=== PATIENT | female | born 1940 | race Caucasian/White ===

== ENCOUNTER 2016-09-19 20:46 | Emergency (ER) | payer MEDICARE, BC ==
[2016-09-19 20:53] VITALS: BP 191/104
--- NOTE | 2016-09-19 21:18 | ERNOTE ---
Medical Problem HPI - Narrative Date of Service: 09/19/16 - General Chief Complaint: Nausea/Vomiting Time Seen by Provider: 09/19/16 21:04 Source: patient, family Exam Limitations: no limitations - Immun/Allergies/Home Medications Immunizations: IMMUNIZATION HX Immunizations Up to Date Yes History of Influenza Vaccine Yes Hx Pneumococcal Vaccination Yes Allergies/Adverse Reactions: Allergies No Known Allergies Allergy (Verified 09/19/16 20:53) Home Medications: HOME MEDICATIONS Acetaminophen [Tylenol] 500 mg PO PRN PRN 03/07/14 [Last Taken Unknown] Aspirin [Aspirin Chewable] 81 mg PO DAILY 03/07/14 [Last Taken Unknown] Atenolol 50 mg PO BID 03/07/14 [Last Taken Unknown] Baclofen 20 mg PO TID 03/07/14 [Last Taken Unknown] Clobetasol Propionate [Temovate 0.05% Cream] 1 appl TP PRN PRN 03/07/14 [Last Taken Unknown] Furosemide [Lasix] 40 mg PO DAILY 03/07/14 [Last Taken Unknown] Gabapentin 100 mg PO TID 03/07/14 [Last Taken Unknown] Losartan Potassium 100 mg PO DAILY 03/07/14 [Last Taken Unknown] Simvastatin 40 mg PO DAILY 03/07/14 [Last Taken Unknown] - History of Present History Narrative: has been sick all day with n/v/diarrhea. Denies fever/chills or abdominal pain. No sick contacts. No obvious food poisoning. Date (Duration): 09/19/16 Timing: constant Severity: moderate Modifying Factors - (Improves): Present: other - took 2 doses of pepto-bismol about noon today. now stools dark Review of Systems - Review of Systems Constitutional: Present: fatigue, malaise. Absent: fever, chills, diaphoresis EYE: Present: no symptoms reported ENT: Present: nose congestion, other - mild cold symptoms for a few days Respiratory: Present: no symptoms reported Cardiology: Present: no symptoms reported Gastrointestinal/Abdominal: Present: nausea, vomiting, diarrhea, eating less, drinking less Genitourinary: Present: no symptoms reported Musculoskeletal: Present: no symptoms reported Skin: Present: no symptoms reported Psych: Present: no symptoms reported - Patient's Past Medical History Patient History - Medical: No pertinent hx Patient History - Cancer: No Hx of Cancer Patient History - Surgical Procedures: Cholecystectomy, Other - large colon polyp removed - Social History Smoking Status: Former smoker Have you smoked in the past 12 months: No Do you dip or chew tobacco: No Alcohol Use: none Drug Use: none Physical Exam - Physical Exam General Appearance: Present: wd/wn, alert, no apparent distress Eye Exam: Normal inspection: bilateral, PERRL: bilateral Neck: Present: normal inspection Respiratory: Present: no respiratory distress Cardiovascular/Chest: Present: regular rate, rhythm, no murmur Gastrointestinal/Abdominal: Present: normal bowel sounds, nontender, nondistended, soft, no organomegaly Back Exam: Present: normal inspection Extremity Exam: Present: normal inspection Neurological Exam: Present: alert, oriented, normal mood/affect Skin Exam: Present: normal color, warm/dry. Absent: pallor, skin rash ED Progress - Results and Orders Patient's Lab Results:: I have reviewed the patient's lab results. - Vital Signs Patient's Vital Signs:: I have reviewed the patient's vital signs. Vital Signs: Vital Signs 09/19/16 20:49 Temperature 37.3 C Pulse Rate 93 Respiratory 14 Rate Blood Pressure 191/104 O2 Sat by Pulse 95 Oximetry - X-Ray X-Ray #1 X-Ray: abdomen Interpretation: Reviewed by me X-ray Comments: no obstruction - Progress/Reassessment Chief Complaint: Nausea/Vomiting Plan - Plan Plan: IV fluids, Zofran, rest. Plan home. Departure - Departure Clinical Impression: Viral gastroenteritis Disposition: Home self-care Condition: Good Instructions: Viral Gastroenteritis, Adult, [id number] Additional Instructions: Home, rest, small volume fluids only for the first 6-12 hours then increase diet as tolerated. Referrals: Helen Sales MD [Primary Care Provider] -
[2016-09-19] MEDS ORDERED: ONDANSETRON HCL/PF 2 MG/ML VIAL ONE ×2 (21:21→22:54)
[2016-09-19 21:32] LABS: Hematocrit 44.8 % (37.0-47.0); Hemoglobin 14.9 gm/dL (12.5-16.0); Mean Cell Volume 94.1 fl (78-100); Mean Corpuscular Hemoglobin 31.3 pg (27-31); Mean Corpuscular Hgb Conc 33.3 g/dl (32-36); Neutrophil # 12.5 K/mm3 (1.3-6.0); Platelet Count 265 K/mm3 (150-450); Red Blood Count 4.76 M/mm3 (4.2-5.4); Red Cell Distribution Width 13.1 % (11.5-14.0); White Blood Count 13.4 K/mm3 (4.0-10.5)
[2016-09-19] MEDS: NORMAL SALINE 1,000 ML IV ONE (21:36)
[2016-09-19] MEDS: ONDANSETRON HCL/PF 2 MG/ML VIAL IV ONE ×2 (21:37→23:04)
[2016-09-19 21:45] LABS: Anion Gap 16.8 mmol/L (6.8-13.8); BUN/Creatinine Ratio 19.2 (9.0-21.6); Bilirubin, Total 0.8 mg/dL (0.0-1.1); Ca. Corrected For Albumin 9.1 mg/dL (8.4-10.2); Calcium * 9.4 mg/dL (7.9-10.9); Carbon Dioxide 24.3 mmol/L (24-32.6); Potassium 4.1 mmol/L (3.4-4.6); Total Protein 8.5 gm/dL (6.2-8.2)
[2016-09-19] MEDS ORDERED: ONDANSETRON 4 MG TAB.RAPDIS ONE (22:55)
[2016-09-19] MEDS: ONDANSETRON 4 MG TAB.RAPDIS PO PRN (23:08)
== END 2016-09-19 23:12 | disposition home or self-care (01) ==
LOC: ER 20:46
DX: A08.4 Viral intestinal infection, unspecified (principal); Z87.891 Personal history of nicotine dependence; Z90.49 Acquired absence of other specified parts of digestive tract